=== PATIENT | female | born 1990 | race Caucasian/White ===

== ENCOUNTER → 2023-08-30 | Outpatient (CLI) | payer BC | END | disposition home or self-care (01) | LOC: LABWHC1 13:51 | PROVIDERS: ATTEND Internal Medicine Cardiovascular Disease | DX: I10 Essential (primary) hypertension (principal) | CPT/HCPCS: 36415; 82088; 82533; 83835; 84244; 84443 ==

== ENCOUNTER → 2023-09-24 | Outpatient (CLI) | payer BC ==
--- NOTE | 2023-09-24 08:34 | US ---
EXAMINATION TYPE: US renal artery duplex complet DATE OF EXAM: 09/24/2023 COMPARISON: NONE CLINICAL INDICATION: Female, 33 years old with history of I10 HTN; New onset HTN - now controlled MEASUREMENTS: RENAL SIZE: Right Kidney: 12.0 x 5.6 x 4.7 cm Left Kidney: 11.2 x 5.1 x 5.6 cm Right Kidney: ? Medullary sponge Kidney Left Kidney: ? Medullary sponge Kidney Abd Aorta: WNL RESISTANCE INDEX Right: 0.84 Left: 0.90 RA/AO RATIO (< 3.5 ) Right: 0.96 Left: 0.41 RENAL ARTERY VELOCITY ( < 180 cm/s) Right: 96 Left: 65 [employer] Notes: IMPRESSION: No sonographic evidence to suggest renal artery stenosis.
== END | disposition home or self-care (01) ==
LOC: RADUSWWP 07:48
PROVIDERS: ATTEND Internal Medicine Cardiovascular Disease
DX: I10 Essential (primary) hypertension (principal); Q61.5 Medullary cystic kidney
CPT/HCPCS: 93975